=== PATIENT | female | born 1985 | race Caucasian/White ===

== ENCOUNTER 2016-10-03 16:37 | Inpatient (IN) | payer OTHER ==
--- NOTE | ~2016-10-03 | DS ---
Discharge Summary [facility] [address] [place]. [address] NAME: JESUS ALEGRIA : 89 STATUS : DIS IN PAT#: [id number] AGE: 31 ADM/REG DATE : 10/03/16 MR#: [id number] REPORT SERV DATE: 10/06/16 DICTATED BY: DATE: REPORT STATUS : Draft TRANSCRIBED BY: MODL DATE: 10/05/16 ADMISSION DATE: 10/03/2016 DISCHARGE DATE: 10/05/2016 The patient was admitted to the [facility] Service. CONSULTANTS: Manolo Barrera M.D. of General Surgery. DISCHARGE DIAGNOSES: 1. Right antecubital fossa abscess, status post incision and drainage by Dr. Iván Barrera on 10/04. 2. Right upper extremity cellulitis-improving after IV antibiotics and incision and drainage. 3. History of melanoma, status post excision in 2013. IMAGING AND DIAGNOSTICS: None. PROCEDURES: I and D of right antecubital fossa on 10/[address] Barrera. PERTINENT LABS: Blood cultures x2 negative. Surgical culture pending at the time of discharge. Gram stain with many white blood cells and moderate gram-positive cocci in pairs. White blood cell count normal. Procalcitonin negative. INR 1.2. Hemoglobin and hematocrit normal. Creatinine normal. Electrolytes normal. Urine HCG negative. BRIEF HISTORY: For full details please see the previously dictated history of present illness by Dr. Kush Blackmon. This is a 31-year-old, white female, who presented to the emergency department with swelling, redness, warmth around her right antecubital fossa. She had been started on outpatient antibiotics of Augmentin without improvement, and was experiencing increased pain and swelling. There was no spontaneous drainage. She had no precipitating injury or trauma, and has no history of IV drug use. The patient was admitted to the [facility] Service from Dr. Larissa Villarreal's office for IV antibiotics and surgical evaluation. HOSPITAL COURSE: The patient was placed on IV Ancef and consultation was requested from Dr. Barrera. He saw the patient early on the morning of 10/04 and took her for an incision and drainage of the right antecubital fossa that day, with operative report revealing a large amount of caseating and purulent material with a small possible cystic wall. All purulent and caseating material was removed and the wound was irrigated and packed and dressed. The patient had no postprocedure complications. At the instruction of General Surgery, her packing was taken down on the afternoon of 10/05, and she was felt fit for discharge home by General Surgery. They recommended Hibiclens shower daily for a week and oral antibiotics of Bactrim for 1 week. The patient will follow up in Dr. Barrera's office for re-evaluation in 1 week. She has no specific activity restrictions aside from light duty at work and a work note was provided. She is unable to return to full duty until she is cleared by her Discharge Summary [address] [id number] NAME: JESUS ALEGRIA : 89 STATUS : DIS IN PAT#: [id number] AGE: 31 ADM/REG DATE : 10/03/16 MR#: [id number] REPORT SERV DATE: 10/06/16 DICTATED BY: DATE: REPORT STATUS : Draft TRANSCRIBED BY: PRISCILA DATE: 10/05/16 surgeon in followup. DISCHARGE MEDICATIONS: 1. Bactrim double strength one tablet p.o. b.i.d. for seven days. 2. Hibiclens showers daily for seven days. 3. Lortab 5/325 mg 1-2 tabs p.o. q.6 hours p.r.n.-20 tablets dispensed with no refills. 4. Tylenol 650 mg p.o. q.6 hours p.r.n. pain. 25 minutes was spent in completion of the discharge. DORITA/PRISCILA Salvador Mota M.D. / [id number] CC: Laith Woo M.D. William Cockerham, M.D.
--- NOTE | ~2016-10-03 | OP ---
Record Of Operation [facility] [address] [place]. [address] NAME: JESUS ALEGRIA : 89 STATUS : ADM [facility] PAT#: [id number] AGE: 31 ADM/REG DATE : 10/03/16 MR#: [id number] REPORT SERV DATE: 10/05/16 DICTATED BY: MANOLO BARRERA DATE: 10/05/16 REPORT STATUS : Draft TRANSCRIBED BY: PRISCILA DATE: 10/05/16 DATE OF PROCEDURE: 10/04/2016 PREOPERATIVE DIAGNOSIS: Right arm abscess. POSTOPERATIVE DIAGNOSIS: Right arm abscess. OPERATION PERFORMED: Incision and drainage of right arm abscess. SURGEON: Dr. Barrera. ANESTHESIA: General. HOUSING SPECIALIST: Gio Branham MD ESTIMATED BLOOD LOSS: Less than 10 mL. IV FLUIDS: Adequate. INDICATION FOR PROCEDURE: Ms. Alegria is a 31-year-old white female who has developed an antecubital fossa right arm abscess. The patient has no history of IV drug use. She is brought to the operating room today for incision and drainage. DESCRIPTION OF OPERATION: After appropriate sedation, the patient was prepped and draped in proper sterile fashion. Skin and subcutaneous tissues overlying the abscess were infiltrated with 1% lidocaine. Incision was made directly over the abscess. A large amount of caseating and purulent material was returned. There appeared to be a small possible cystic wall. Once we removed all the purulent and caseating material, the wound was irrigated. It was then packed and dressed. The patient was taken to the recovery room in satisfactory condition. GASTON/PRISCILA Manolo Barrera M.D. / [id number] CC: Laith Woo M.D.
--- NOTE | ~2016-10-03 | HP ---
History And Physical [place] [id number] [facility] [place]. [address] NAME: JESUS ALEGRIA : [birth year] STATUS : ADM IN [facility]#: [id number] AGE: 31 ADM/REG DATE : 10/03/16 MR#: [id number] REPORT SERV DATE: 10/04/16 DICTATED BY: BALDEMAR DAWN DATE: 10/03/16 REPORT STATUS : Draft TRANSCRIBED BY: MODKalpesh DATE: 10/03/16 DATE OF ADMISSION: 10/03/2016 CHIEF COMPLAINT: Right arm swelling in antecubital fossa with abscess formation and recent failure of antibiotic treatment as an outpatient. The patient sent from Dr. Larissa Villarreal's office for admission for surgical evaluation and IV antibiotics. HISTORY OF PRESENT ILLNESS: The patient is a very pleasant 31-year-old female with only past medical history of melanoma, status post surgical resection of back of right leg in 2013, has been cleared from this in the past and was in her usual state of health up until about 1 week ago when she started noticing a small knot in the elbow. Although this elbow she has had occasional area of difficulty for about a year, it has been increasing in size and painful. The patient has been started on antibiotics with Augmentin without improvement and has had increased swelling and pain with erythema. Symptoms have worsened with activity, pressure, and site point pain. No drainage currently at the site. 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 No recent tetanus shot that she can recall. The patient additionally received Rocephin dose. Symptoms have not improved or resolved, still actually worsening with pain and decreased motility of right arm although sensation is still intact. REVIEW OF SYSTEMS: A 10-point review of systems negative except that noted in the HPI. SURGERIES: Melanoma removed in right posterior leg in 2013. PAST MEDICAL HISTORY: Melanoma. FAMILY HISTORY: Noted for diabetes and hypertension in grandparents otherwise parents healthy. SOCIAL HISTORY: No smoking. No illicit. Does have rare alcohol about 2 times a year. ALLERGIES: NO KNOWN DRUG ALLERGIES AND NO COMPLICATIONS WITH ANESTHESIA THAT SHE CAN RECALL IN HER OR HER FAMILY. PHYSICAL EXAMINATION: VITAL SIGNS: Respiratory rate 16, heart rate 70s, and blood pressure normotensive. GENERAL: No acute distress. Calm, pleasant, well developed, well nourished. HEAD: Normocephalic, atraumatic. EYES: No scleral icterus. EOMI. ENT: Nares patent. Tongue midline. Moist mucous membranes. CHEST: Equal chest expansion. No increased AP diameter. CV: Regular rate. No rubs or gallops. ABDOMEN: Soft, nontender, and nondistended. Bowel sounds positive. MUSCULOSKELETAL: Moves all extremities x4. Pulses palpable in bilateral upper arms and leg. Strength: Symmetrical strength upper and lower extremities. Right arm extremity does have History And Physical [address] [address] NAME: JESUS ALEGRIA : 89 STATUS : ADM IN [facility]#: [id number] AGE: 31 ADM/REG DATE : 10/03/16 MR#: [id number] REPORT SERV DATE: 10/04/16 DICTATED BY: BALDEMAR DAWN DATE: 10/03/16 REPORT STATUS : Draft TRANSCRIBED BY: PRISCILA DATE: 10/03/16 abscess in antecubital fossa is tender without drainage, fluctuant, blanchable with decreased flexion of elbow, unable to flex to closure with pain limiting at approximately 90 degrees. HEME: No bleeding or bruising. SKIN: Erythema on the right arm with redness and abscess formation. PSYCH: Appropriate mood and affect. NEURO: Grossly intact with sensation still preserved in arms bilaterally. Symmetrical strength. Moves all extremities. Normal vocal deny. LYMPH: No cervical or supraclavicular lymphadenopathy. MEDICATIONS: Augmentin, Rocephin, and Advil LABORATORY DATA: No current labs. ASSESSMENT AND PLAN: 1. Right arm abscess. 2. Melanoma history. PLAN: 1. For right arm abscess, Unasyn and surgery evaluation for possible I and D. Requesting [facility], Dr. Barrera, on-call. We will obtain preop labs, cultures, and n.p.o. at midnight in case OR scheduled. 2. For melanoma history, the patient has seen Dermatology, status post resection and reports has been cleared from that site. All questions answered. The patient's family at bedside. Medicine Team to follow in a.m. MILLYN/MODL Baldemar Dawn MD / [id number] CC: MD Larissa Canchola M.D.
[2016-10-03] MEDS ORDERED: AUG875 PO (18:33)
[2016-10-03] MEDS ORDERED: ADVIL PO (18:33)
[2016-10-03] MEDS ORDERED: ROCEPH IM (18:34)
[2016-10-03 19:24] LABS: BASOPHILS 0.2 %; BASOPHILS ABSOLUTE 0.02 10/3/uL (0.0-0.16); EOSINOPHILS 0.9 %; EOSINOPHILS ABSOLUTE 0.09 10/3/uL (0.0-0.53); HEMATOCRIT 39.8 % (36.0-48.0); HEMOGLOBIN 13.7 g/dL (12.0-16.0); IMMATURE GRANULOCYTES 0.2 %; IMMATURE GRANULOCYTES ABSOLUTE 0.02 10/3/uL (0.0-0.11); LYMPHOCYTES ABSOLUTE 1.93 10/3/uL (0.67-4.30); MANUAL DIFF NO %; MEAN CORPUS HGB CONC 34.4 g/dL (32.0-36.0); MEAN CORPUSCULAR HEMOGLOB 29.5 pg (26.0-34.0); MEAN CORPUSCULAR VOLUME 85.8 fL (80-100); MEAN PLATELET VOLUME 11.9 fL (9.2-13.0); MONOCYTES 4.8 %; MONOCYTES ABSOLUTE 0.46 10/3/uL (0.21-1.20); NEUTROPHILS 73.9 %; NEUTROPHILS ABSOLUTE 7.15 10/3/uL (2.02-8.40); PLATELET COUNT 152 10/3/uL (150-400); RBC DISTRIBUTION WIDTH 13.3 % (12.0-16.0); RED CELL COUNT 4.64 10/6/uL (4.0-5.6); WHITE BLOOD CELLS 9.7 10/3/uL (4.5-10.5)
[2016-10-03 19:35] LABS: CALCIUM, SERUM 8.9 MG/DL (8.5-10.4); CHLORIDE, SERUM 108 MMOL/L (96-112); CO2 (CARBON DIOXIDE) 23 MMOL/L (24-34); GFR AFRICAN AMERICAN 136 ML/MIN (>=60); GFR NON AFRICAN AMERICAN 117 ML/MIN (>=60); GLUCOSE, SERUM 83 MG/DL (60-99); POTASSIUM, SERUM 3.8 MMOL/L (3.5-5.3); SODIUM, SERUM 141 MMOL/L (135-148)
[2016-10-03 19:36] LABS: BUN (BLOOD UREA NITROGEN) 12 MG/DL (6-23)
[2016-10-03 21:01] LABS: INTERNATIONAL NORMAL RATI 1.1 UNITS (-); PROTIME (NOT ORD) 13.9 SEC (12.0-14.5)
[2016-10-03 21:02] LABS: PROCALCITONIN <0.05 ng/mL (<0.5)
[2016-10-04 06:52] LABS: BASOPHILS 0.3 %; BASOPHILS ABSOLUTE 0.02 10/3/uL (0.0-0.16); EOSINOPHILS 1.3 %; EOSINOPHILS ABSOLUTE 0.09 10/3/uL (0.0-0.53); IMMATURE GRANULOCYTES 0.1 %; IMMATURE GRANULOCYTES ABSOLUTE 0.01 10/3/uL (0.0-0.11); LYMPHOCYTES 22.2 %; LYMPHOCYTES ABSOLUTE 1.54 10/3/uL (0.67-4.30); MEAN CORPUS HGB CONC 33.6 g/dL (32.0-36.0); MEAN CORPUSCULAR HEMOGLOB 28.7 pg (26.0-34.0); MEAN CORPUSCULAR VOLUME 85.4 fL (80-100); MEAN PLATELET VOLUME 11.8 fL (9.2-13.0); MONOCYTES 6.8 %; MONOCYTES ABSOLUTE 0.47 10/3/uL (0.21-1.20); NEUTROPHILS 69.3 %; NEUTROPHILS ABSOLUTE 4.81 10/3/uL (2.02-8.40); PLATELET COUNT 151 10/3/uL (150-400); RBC DISTRIBUTION WIDTH 13.5 % (12.0-16.0); RED CELL COUNT 4.18 10/6/uL (4.0-5.6); WHITE BLOOD CELLS 6.9 10/3/uL (4.5-10.5)
[2016-10-04 06:53] LABS: HEMATOCRIT 35.7 % (36.0-48.0); MANUAL DIFF NO %
[2016-10-04 07:07] LABS: PHOSPHORUS, SERUM 3.1 MG/DL (2.5-4.5)
[2016-10-05 08:22] LABS: BASOPHILS 0.7 %; BASOPHILS ABSOLUTE 0.03 10/3/uL (0.0-0.16); EOSINOPHILS 3.5 %; EOSINOPHILS ABSOLUTE 0.15 10/3/uL (0.0-0.53); HEMATOCRIT 37.5 % (36.0-48.0); HEMOGLOBIN 12.6 g/dL (12.0-16.0); IMMATURE GRANULOCYTES 0.2 %; IMMATURE GRANULOCYTES ABSOLUTE 0.01 10/3/uL (0.0-0.11); LYMPHOCYTES 40.8 %; LYMPHOCYTES ABSOLUTE 1.73 10/3/uL (0.67-4.30); MANUAL DIFF NO %; MEAN CORPUS HGB CONC 33.6 g/dL (32.0-36.0); MEAN CORPUSCULAR HEMOGLOB 29.2 pg (26.0-34.0); MEAN CORPUSCULAR VOLUME 86.8 fL (80-100); MEAN PLATELET VOLUME 12.4 fL (9.2-13.0); MONOCYTES 5.9 %; MONOCYTES ABSOLUTE 0.25 10/3/uL (0.21-1.20); NEUTROPHILS 48.9 %; NEUTROPHILS ABSOLUTE 2.07 10/3/uL (2.02-8.40); PLATELET COUNT 139 10/3/uL (150-400); RBC DISTRIBUTION WIDTH 13.1 % (12.0-16.0); RED CELL COUNT 4.32 10/6/uL (4.0-5.6); WHITE BLOOD CELLS 4.2 10/3/uL (4.5-10.5)
[2016-10-05 08:38] LABS: CALCIUM, SERUM 8.1 MG/DL (8.5-10.4); CHLORIDE, SERUM 111 MMOL/L (96-112); CO2 (CARBON DIOXIDE) 25 MMOL/L (24-34); CREATININE 0.71 MG/DL (0.55-1.02); GFR AFRICAN AMERICAN 133 ML/MIN (>=60); GFR NON AFRICAN AMERICAN 115 ML/MIN (>=60); GLUCOSE, SERUM 90 MG/DL (60-99); POTASSIUM, SERUM 3.9 MMOL/L (3.5-5.3); SODIUM, SERUM 143 MMOL/L (135-148)
[2016-10-05 08:39] LABS: BUN (BLOOD UREA NITROGEN) 7 MG/DL (6-23)
[2016-10-05] MEDS ORDERED: NORCO1 TA1 PO (15:36)
[2016-10-05] MEDS ORDERED: BACDS PO (15:36)
[2016-10-05] MEDS ORDERED: T PO (15:37)
== END 2016-10-05 17:00 | disposition home or self-care (01) | DRG 603 ==
LOC: 5SO 16:37
PROVIDERS: Hospitalist; Specialist; Student in an Organized Health Care Education/Training Program
PROC: 0H9BXZZ Drainage of Right Upper Arm Skin, External Approach (ICD-10-PCS; principal; 2016-10-04 10:45)
DX: L02.413 Cutaneous abscess of right upper limb (principal); Z85.820 Personal history of malignant melanoma of skin; L03.113 Cellulitis of right upper limb; Z82.49 Family history of ischemic heart disease and other diseases of the circulatory system; Z83.3 Family history of diabetes mellitus
CPT/HCPCS: 80048; 83735; 84100; 84145; 84703; 85025; 85610; 87040; 87070; 87075; 87205; 90715; A9270-GY; J0690; J2250; J2405; J3010